=== PATIENT | male | born 1955 | race Caucasian/White ===

== ENCOUNTER → 2020-06-24 08:59 | Outpatient (POV) | payer MEDICARE, BC, SELFPAY | PROVIDERS: Visit Provider Dermatology | DX: Z00.00 Encounter for general adult medical examination without abnormal findings (principal) ==

== ENCOUNTER 2020-07-06 10:42 | Emergency (ER) | payer MEDICARE, BC, SELFPAY ==
[2020-07-06 10:50] VITALS: BP 174/86; PULSE 74; RESP 17; TEMP 37; O2SAT 97; BMI 39.9
--- NOTE | 2020-07-06 11:02 | XR_ITS ---
PROCEDURE: XR LUMBAR SPINE 2-3V CLINICAL INDICATION: PAIN COMPARISON: No exams were available for comparison FINDINGS: Mild levocurvature of the lumbar spine. Degenerative disc disease from L2-S1 most prominent at L3-L4 and L5-S1. Anterior osteophytes are present at L2-L3. No fracture or dislocation. No lytic or blastic change. Other findings:None. IMPRESSION: Degenerative changes lumbar spine. Dictated by: Ashish Abdi MD 07/06/2020 12:06 Ashish Abdi MD in [place] 07/06/2020 12:06
--- NOTE | 2020-07-06 11:18 | HMH.EDUTC ---
[facility] [place] Clinical Impression: Low back pain Qualifiers: Chronicity: unspecified Back pain laterality: right Sciatica presence: with sciatica Sciatica laterality: sciatica of right side Qualified Code(s): M54.41 - Lumbago with sciatica, right side Disposition: Home, Self-Care Condition on Discharge: Good Instructions: Low Back Pain, DI for Low Back Pain, DI for Chronic Pain -- Adult, Prednisone, Methocarbamol, DI for Muscle Spasm Additional Instructions: *Ibuprofen tierra 6 hours with meal as needed for pain/inflammation *Remember you had a Toradol shot in the clinic today, which is similar to Motrin *Not additional anti-inflammatory like motrin, aleve, advil with the above amount of ibuprofen. You can still take Tylenol every 4 hours as needed if you need something else for pain *Ice 20 minutes every 2 hours for the first 48 hours after the initial injury followed by moist heat every 20 minutes 3-4 times a day to affected area *Muscle relaxer as prescribed as needed for muscle spasms but remember, it WILL cause drowsiness You cannot take it and drive, operate machinery or care for small children. *Keep this area active, no movement leads to more stiffness, However take it easy and avoid heavy lifting pushing or pulling *Follow up with you family doctor if no improvement for further treatment Return if needed Straight to ER if any life threatening symptoms Straight to ER if any loss of control of bowel or bladder Prescriptions: methocarbamoL [Robaxin 750mg Tab] 750 mg PO BID PRN 5 Days #10 tab PRN Reason: Muscle Spasm Transmission Status: [id number] Referrals: Rudy Moses MD [Primary Care Provider] - As needed Time of Disposition: 12:18 Medical Decision Making - Matthew Inquiry Pt receiving controlled substance: No Matthew was queried for this patient: No Vital Signs: 07/06/20 10:50 07/06/20 12:29 Temperature 98.6 F 98.6 F Temperature Source Oral Oral Pulse Rate 74 Pulse Rate [Radial] 74 Respiratory Rate 17 17 Blood Pressure 174/86 H Blood Pressure [Right Arm] 174/86 H Blood Pressure Mean [Right Arm] 115 Blood Pressure Source Automatic Cuff Blood Pressure Source [Right Arm] Automatic Cuff Blood Pressure Position Sitting Blood Pressure Position [Right Arm] Sitting 02 Sat by Pulse Oximetry 97 Oxygen Delivery Method Room Air Room Air Orders (Tests/Meds): ED MEDICATIONS Discontinued Medications Generic Name Dose Route Start Last Admin Trade Name Leonardo PRN Reason Stop Dose Admin Methylprednisolone Sodium Succinate 125 mg 07/06/20 12:20 07/06/20 12:26 Methylprednisolone Sod Succ 125mg Vial IM 07/06/20 12:21 125 mg ONCE ONE Administration - Radiology Data #1 Image(s): L-Spine Image Reviewed: Yes I have reviewed radiologist's interpretation Degenerative changes lumbar spine. [facility] [place] - General Stated complaint: down in back Time Seen by Provider: 07/06/20 11:00 Mode of Arrival: Wheelchair Source of Information: Patient Limitations: No Limitations Description of Symptoms (Recalled from Triage Doc. by RN): States he is down in his back. Lower back pain. HEENT Symptoms (Recalled from RN notes): No Resp Symptoms (Recalled from RN notes): No Skin Symptoms (Recalled from RN notes): No MS Symptoms (Recalled from RN notes): Yes Functional Status (Recalled from RN notes): wnl - History of Present Illness Provider Complaint: Patient states that he is down in his lower back States that he has chronic back problems in the past States that he has been having pain in his lower back area that radiates into his buttock area and down right leg State that it hurts worse when he tries to stand up and walk States that today it was still bothering him so he came in to see if he could get something to help Denies loss of control of bowel or bladder - Related Data Previous Rx's Medication Instructions Recorded Ondansetron [Zofran 4mg ODT] 4 mg
[2020-07-06 12:29] VITALS: BP 174/86; PULSE 74; RESP 17; TEMP 37; O2SAT 97
== END 2020-07-06 12:31 | disposition home or self-care (01) ==
PROVIDERS: Emergency Provider Nurse Practitioner; PCP Internal Medicine Adolescent Medicine
DX: M54.41 Lumbago with sciatica, right side (principal)
CPT/HCPCS: G0463; 72100; 96372; 99202

== ENCOUNTER 2020-07-08 10:52 | Emergency (ER) | payer MEDICARE, BC, SELFPAY ==
[2020-07-08 10:55] VITALS: BP 146/73; PULSE 80; RESP 18; TEMP 36.8; O2SAT 97; BMI 39.1
--- NOTE | 2020-07-08 11:03 | HMH.EDGENADL ---
ED Disposition Clinical Impression: Low back pain with sciatica Qualifiers: Chronicity: acute Back pain laterality: bilateral Sciatica laterality: bilateral sciatica Qualified Code(s): M54.42 - Lumbago with sciatica, left side Disposition: Home, Self-Care Condition on Discharge: Fair Instructions: DI for Low Back Pain Additional Instructions: Prednisone as prescribed, begin tomorrow. Tylenol or ibuprofen for pain. Follow-up with primary care provider, call for appointment. Additional instructions for BACK PAIN: See your physician as soon as possible for further evaluation. Return immediately if back pain becomes intolerable, or if fever, numbness or weakness of your legs, loss of control of your bowels or bladder. Prescriptions: predniSONE [Prednisone 10mg Tab Dose-Pack] 10 mg PO DAILY #42 pack Transmission Status: Pending to [id number] Referrals: Rudy Moses MD [Primary Care Provider] - - Critical Care Critical Care Time: No Attestation: On , the high probability of a clinically significant, sudden or life threatening deterioration of the following system(s) required my full and direct attention, intervention and personal management. The time I documented below is in addition to time spent performing reported procedures but includes the following listed in this critical care notation. Medical Decision Making - Matthew Inquiry Pt receiving controlled substance: No Vital Signs: 07/08/20 10:55 Temperature 98.3 F Temperature Source Oral Pulse Rate [Right Radial] 80 Respiratory Rate 18 Blood Pressure [Right Arm] 146/73 H Blood Pressure Mean [Right Arm] 97 Blood Pressure Source [Right Arm] Automatic Cuff Blood Pressure Position [Right Arm] Sitting 02 Sat by Pulse Oximetry 97 Oxygen Delivery Method Room Air Orders (Tests/Meds): ED MEDICATIONS Discontinued Medications Generic Name Dose Route Start Last Admin Trade Name Freq PRN Reason Stop Dose Admin Dexamethasone Sodium Phosphate 10 mg 07/08/20 11:19 07/08/20 11:25 Dexamethasone 4mg/Ml 1ml Vial IM 07/08/20 11:20 10 mg ONCE ONE Administration Medical Decision Narrative: I suspect the patient has spinal stenosis, advised to follow-up with primary care provider, may need MRI. Patient declines any opiate pain relievers. General Adult HPI - General Stated complaint: back pain, no accident Time Seen by Provider: 07/08/20 11:03 - History of Present Illness HPI narrative: Patient has a long history of lower back pain. 20 years ago he had an injury to his back. For years he would have problems with a daily pain with radiation, typically down one leg. He says after that he did fairly well for a number of years but over the past week has had increased low back pain again at the level of his belt line radiating down both legs to his feet. Pain is exacerbated by standing position and walking, reduced by rest and sitting. Denies numbness or weakness. Denies loss of bowel or bladder control. No groin numbness. He was seen in the urgent treatment center 2 days ago and was given an injection of Solu-Medrol. He says he was better for half a day but then symptoms returned. He was not started on steroids at home. He was given a prescription for muscle relaxer which he does not feel does anything. He does not currently see anybody about his back pain. - Related Data Previous Rx's Medication Instructions Recorded Ondansetron [Zofran 4mg ODT] 4 mg PO Q6 PRN #8 tab.rapdis 11/25/19 methocarbamoL [Robaxin 750mg Tab] 750 mg PO BID PRN 5 Days #10 tab 07/06/20 predniSONE [Prednisone 10mg Tab 10 mg PO DAILY #42 pack 07/08/20 Dose-Pack] Allergies Allergy/AdvReac Type Severity Reaction Status Date / Time No Known Allergies Allergy Verified 11/25/19 01:06 [facility] History - Hepatitis A Screen Attestation statement:: This patient has been screened for Hepatitis A risk factors. I have reviewed the sabine
[2020-07-08 11:41] VITALS: BP 134/71; PULSE 76; O2SAT 97
[2020-07-08 11:53] VITALS: BP 134/71; PULSE 78; RESP 16; TEMP 36.6; O2SAT 98
== END 2020-07-08 11:54 | disposition home or self-care (01) ==
PROVIDERS: Emergency Provider Emergency Medicine; PCP Internal Medicine Adolescent Medicine
DX: M54.42 Lumbago with sciatica, left side (principal)
CPT/HCPCS: 96372; 99282

== ENCOUNTER → 2020-08-01 07:48 | Outpatient (CLI) | payer MEDICARE, BC, SELFPAY ==
--- NOTE | 2020-08-01 07:55 | MR_ITS ---
PROCEDURE: MR LUMBAR SPINE WO CON CLINICAL INDICATION: BACK PAIN i2rtcid ago. pt has been to physical therapy. lbp worse on rt side. bilateral leg pain, numbness, and tingling. COMPARISON: CR XR LUMBAR SPINE 2-3V from 07/06/2020 TECHNIQUE: Standard multiplanar multiecho sequences are performed without contrast. 3-D MIP and myelographic images are also rendered and reviewed FINDINGS: There is normal alignment. The spinal cord ends at the T12-L1 level. L1-L2: Unremarkable. L2-L3: Degenerative disc disease with bulging disc with facet and ligamentum hypertrophy. There is moderate to severe bilateral lateral recess narrowing right greater than left and borderline spinal stenosis there is impingement upon the L3 nerve roots in the lateral recess on both sides right greater than left. L3-L4: Degenerative disc disease with bulging disc and small central disc protrusion. There is prominent facet and ligamentum hypertrophy right worse than left with severe right lateral recess narrowing and moderate left lateral foraminal narrowing. Canal stenosis at this level. There is impingement upon the right L4 nerve root. L4-5: Degenerative disc disease with bulging disc and a small to medium left paracentral disc protrusion/herniation. There is severe facet and ligamentum hypertrophy with severe bilateral lateral recess narrowing with impingement upon the L5 nerve roots. There is severe canal stenosis which is worse centrally and on the left and severe left-sided foraminal narrowing and mild right foraminal narrowing. L5-S1: Degenerative disc disease with bulging disc with facet and ligamentum hypertrophy with mild bilateral lateral recess narrowing, severe left foraminal narrowing, and mild right foraminal narrowing. IMPRESSION: Abnormal MRI of the lumbar spine with multilevel lumbar spondylosis with degenerative disc disease bulging disc with facet and ligamentum hypertrophy with lateral recess and foraminal narrowing and canal stenosis. Small central disc protrusion at L3-L4 and small to medium-sized left paracentral disc protrusion/herniation at L4-5. Multi level nerve root impingement. Please see above for detailed description at each level. Dictated by: Ashish Abdi MD 08/02/2020 09:29 Ashish Abdi MD in [place] 08/02/2020 09:29
== END ==
PROVIDERS: PCP Internal Medicine Adolescent Medicine; Visit Provider Internal Medicine Adolescent Medicine
DX: M54.41 Lumbago with sciatica, right side (principal)
CPT/HCPCS: 72148; 76376

== ENCOUNTER 2020-08-05 09:00 | Outpatient (RCR) | payer MEDICARE, BC, SELFPAY ==
--- NOTE | 2020-07-16 09:34 | HMH.PTOPEV ---
PT Outpatient Evaluation Rehab PT Outpatient Evaluation Start: 07/16/20 08:36 Freq: Status: Active Protocol: Document 07/16/20 08:37 PDESEROUX (Rec: 07/16/20 09:33 PDESEROUX [id number]) Electronically Signed By Behzad Segura, PT 07/16/20 08:37 Outpatient Therapy Subjective History Subjective History Pt. is a 64 year old male who presents to Outpatient PT clinic w/ complaints of acute on chronic and constant LB and BLE P! of insidious onset 2 weeks ago. Pt. reports first onset of LBP ! was 13-14 years ago, but states symptoms have worsened 2 wks. ago. Pt. reports acute symptom onset may have been from helping his brother-in- law ambulate w/ his FWW. Pt. reports refusing having invasive procedures 13-14 years ago w/ initial onset, but stated having some symptom relief w/ Chiropractor services. Pt. reports current symptom relief w/ sitting and prescribed medications that include a steroid, muscle relaxer, and an anti- inflammatory. Pt. reports standing and walking worsen the symptoms. Pt. denies bowel /bladder incontinencies. Current medications include medicine listed above and Vitamin D3, Loratadine, Amlodipine, Carvedilol, Losartan, Rosuvastatin, Cetirizine, and Montelukast. PMH includes chronic LBP!, Prostate cancer 2016(pt. reports currently inactive), Cholecystectomy, Adenoidectomy , Tonsillectomy, Hypertension, and Histoplasmosis. Chief Complaint Pain,Stiff,Paresthesia Symptom Type Ache,Sharp,Dull,Burning, Shooting Symptoms Relieved By Rest/Positioning,Ice, Prescription Meds Symptoms Aggravated By Supine,Standing,Twisting, Walking Prior
== END 2020-08-21 14:00 | disposition home or self-care (01) ==
LOC: PT.CARL 09:00
PROVIDERS: PCP Internal Medicine Adolescent Medicine; Visit Provider Internal Medicine Adolescent Medicine
DX: M54.40 Lumbago with sciatica, unspecified side (principal)
CPT/HCPCS: 97010; 97014; 97110; 97140; 97163; G0283

== ENCOUNTER → 2020-09-16 07:23 | Outpatient (CLI) | payer MEDICARE, BC, SELFPAY ==
[2020-09-16 13:55] LABS: Alanine Aminotransferase 19 U/L (12-78); Albumin Level 3.7 g/dl (3.5-5.0); Albumin/Globulin Ratio 1.3 (1.1-1.8); Alkaline Phosphatase 102 U/L (38-126); Anion Gap 9.7 mEq/L (5-15); Aspartate Amino Transferase 24 U/L (17-59); Bilirubin,Total 0.5 mg/dl (0.2-1.3); Blood Urea Nitrogen 22 mg/dl (9-20); Calcium 9.3 mg/dl (8.4-10.2); Carbon Dioxide 28 mmol/L (22.0-30.0); Chloride 103 mmol/L (98-107); Chol/HDL Ratio 3.5 (1-3.5); Cholesterol 126 mg/dl (140-200); Estimated Glomerular Filt Rate 97 ml/min (>60); GFR (African American) 117 ML/MIN (>60); Globulin 2.8 g/dL (1.3-3.2); Glucose 98 mg/dl (74-100); HDL Cholesterol 36 mg/dl (40-60); Potassium 4.7 mmoL/L (3.5-5.1); Sodium 136 mmol/L (136-145); Total Protein,Serum 6.5 g/dl (6.3-8.2); Triglycerides 121 mg/dl (30-150); VLDL Cholesterol 24 mg/dL (0-40)
[2020-09-16 14:06] LABS: Direct LDL Cholesterol 79.28 mg/dL (100-129)
[2020-09-16 14:11] LABS: 25-OH Vitamin D, Total 47.1 ng/mL (30-100)
== END ==
PROVIDERS: Visit Provider Nurse Practitioner Family
DX: Z00.00 Encounter for general adult medical examination without abnormal findings (principal); I10 Essential (primary) hypertension; E55.9 Vitamin D deficiency, unspecified
CPT/HCPCS: 36415; 80053; 80061; 82306

== ENCOUNTER 2021-11-16 09:13 | Emergency (ER) | payer MEDICARE, BC, SELFPAY ==
[2021-11-16 09:14] VITALS: BP 164/95; PULSE 72; RESP 18; TEMP 36.8; O2SAT 98; BMI 38.7
[2021-11-16 09:30] VITALS: BP 175/106; PULSE 72; O2SAT 95
--- NOTE | 2021-11-16 09:34 | HMH.EDGENADL ---
ED Disposition Clinical Impression: HTN (hypertension) Disposition: Home, Self-Care Condition on Discharge: Good Additional Instructions: Please follow up with your primary care physician in 2-3 days for further management. Please continue to take blood pressure medications as prescribed and keep log of your blood pressure. Please continue to drink plenty of water. Return if numbness, weakness, speech changes, worsening headache or any other concerning symptoms. Referrals: Rudy Moses MD [Primary Care Provider] - Time of Disposition: 09:55 - Critical Care Critical Care Time: No Attestation: On 11/16/21, the high probability of a clinically significant, sudden or life threatening deterioration of the following system(s) required my full and direct attention, intervention and personal management. The time I documented below is in addition to time spent performing reported procedures but includes the following listed in this critical care notation. Medical Decision Making - Medical Records Medical records reviewed: Yes: I reviewed the patient's medical records. - Matthew Inquiry Pt receiving controlled substance: No Vital Signs: 11/16/21 09:14 11/16/21 09:30 11/16/21 09:52 Temperature 98.3 F 98.3 F Temperature Source Oral Pulse Rate 72 74 Pulse Rate [Left Radial] 72 Respiratory Rate 18 20 Blood Pressure 175/106 H 159/89 H Blood Pressure [Right Arm] 164/95 H Blood Pressure Mean 129 Blood Pressure Mean [Right Arm] 118 Blood Pressure Source Automatic Cuff Blood Pressure Source [Right Arm] Automatic Cuff Blood Pressure Position Sitting Blood Pressure Position [Right Arm] Sitting 02 Sat by Pulse Oximetry 98 95 Oxygen Delivery Method Room Air Room Air - Lab Data Lab results reviewed: Yes: I reviewed the patient's lab results. Orders (Tests/Meds): ED MEDICATIONS Discontinued Medications Generic Name Dose Route Start Last Admin Trade Name Freq PRN Reason Stop Dose Admin Acetaminophen 1,000 mg 11/16/21 09:34 11/16/21 09:47 Acetaminophen 500mg Tab PO 11/16/21 09:35 1,000 mg ONCE ONE Administration Ibuprofen 600 mg 11/16/21 09:34 11/16/21 09:47 Ibuprofen 600 Mg Tablet PO 11/16/21 09:35 600 mg ONCE ONE Administration Medical Decision Narrative: Mr. Ortiz is a 66 yo male w/ PMH for HTN who presents to the ED for concern for uncontrolled blood pressures. Patient is afebrile and hemodynamically stable on arrival. BP on arrival 164/95. Patient denies chest pain, visual disturbances, focal neurological deficits or any other signs of end organ failure. Patient has mild headache but also reports he has not been drinking water and was recently sick a week ago with viral illness. Patient BP at this time, no concern for hypertensive emergency, BP reads have been consistently high over the last month with no changes. Patient is given tylenol and iubprofen for pain control and instructed to drink plenty of water. Symptoms resolved at discharged. Patient is instructed to drink plenty of water and to return for worsening symptoms such as numbness, weakness, visual changes, severe headache, or any other concerns. Patient will fu w/ PCP in 2-3 days, patient instructed to continue BP log to assist PCP with medication management. General Adult HPI - General Chief complaint: Headache Stated complaint: high blood presssure Time Seen by Provider: 11/16/21 09:20 Mode of Arrival: Ambulatory Source of Information: Patient Limitations: No Limitations Description of Symptoms (Recalled from ER Triage Doc. by RN): c/o MUÑOZ for 3 days with high bp 160s/80s for one month. States that last time he had a MUÑOZ and it was his bp up. - History of Present Illness HPI narrative: Mr. Ortiz is a 66 yo male w/ PMH for HTN who presents to the ED for HTN and headache. Patient reports that he has had increase in his BP over the last month. He kept a diary log which shows AVG BP of 140-150/89-
--- NOTE | 2021-11-16 09:45 | PC.NURSE ---
updated pt on pt care
[2021-11-16 09:52] VITALS: BP 159/89; PULSE 74; RESP 20; TEMP 36.8; O2SAT 98
== END 2021-11-16 09:55 | disposition home or self-care (01) ==
PROVIDERS: Emergency Provider Student in an Organized Health Care Education/Training Program; PCP Internal Medicine Adolescent Medicine
DX: R51.9 Headache, unspecified (principal); I10 Essential (primary) hypertension
CPT/HCPCS: 99283

== ENCOUNTER 2022-12-29 08:52 | Day surgery (SDC) | payer MEDICARE, BC, SELFPAY ==
[2022-12-14 13:44] VITALS: BMI 38.8
[2022-12-29] VITALS (8 sets, daily range): BP systolic 82–153; BP diastolic 44–87; PULSE 66–88; RESP 20; TEMP 36.1–36.2; O2SAT 94–98
--- NOTE | 2022-12-29 11:44 | EXP.ANES.CKL ---
[facility] Disclaimer: The information contained in this section may have been updated after the patient was seen, as this information can be updated by other users. Medical History History of prostate cancer HLD (hyperlipidemia) HTN (hypertension) Surgical History (Updated 12/14/22 @ 13:39 by Alisa Irizarry RN) H/O adenoidectomy History of cholecystectomy Hx of prostatectomy Hx of tonsillectomy Previous back surgery Family History Other Asthma Cancer Coronary artery disease Diabetes Heart attack Hyperlipidemia Hypertension Kidney disease Stroke Social History (Updated 12/14/22 @ 13:39 by Alisa Irizarry RN) Smoking Status: Former smoker smoking status stop date: 09/19/1972 how long ago did patient quit smokin yrs alcohol intake: never substance use type: denies use current occupational status: retired Travel in the last 8 weeks: None household members: none housing: house lives independently: Yes marital status: education level: college service: No longterm: No special oxana needs: No agree to transfusion: No do you feel safe at home: Yes victim of physical abuse: No victim of emotional abuse: No victim of sexual abuse: No would you like helpful sources: No [facility] Anesthesia Checklist Patient Identification Patient Identification: Arm Band Structural Data Admitted From: Home Planned Operative Procedure/s: colonoscopy Consent for Planned Operative Procedure(s) Verified: Yes Verified Documents: Surgical Consent and History and Physical NPO Status Verified Time NPO: 00:00 Additional verifications Patient : No Airway Assessment C-Spine Mobility Assessed: Yes TMJ Mobility Assessed: Yes Dentition: Good Dentition Neurological Assessment Level of Consciousness: Awake and Alert Anesthesia Plan Anesthesia Risk discussed: Yes Anesthesia Plan: Verified ASA Class: II Anesthesia Type: MAC
--- NOTE | 2022-12-29 12:06 | HMH.SCOPE ---
Procedure: Date: 12/29/22 Patient Date of :: 1955 Procedure Performed:: Colonoscopy Indications:: History of polyps Performing Provider:: Jose Alicia MD Referring Provider:: Rudy Moses MD Sedation:: See RN records Procedure:: After placing the patient in the left lateral decubitus position, the colonoscopy was gently inserted into the rectum and under direct visualization advanced to the cecum which was identified by transillumination in the right lower quadrant, identification of the ileocecal valve, appendiceal orifice, and cecal strap. Color, texture, mucosa, and anatomy of the colon were carefully examined with the scope. Findings:: Anal canal: normal Rectum:internal hemorrhoidsl Sigmoid colon: diverticulosis Descending colon: Sessile polyp less than 5 mm in size. Removed with cold forceps Splenic flexure: normal Transverse colon: normal without polyps or inflammatory changes Hepatic flexure: normal Ascending colon: normal without polyps or inflammatory changes Cecum: normal Terminal ileum: not visualized Recommendations:: Await pathology results Repeat colonoscopy in 5 years Complications:: None Estimated blood obtained (mL): 0
== END 2022-12-29 12:55 | disposition home or self-care (01) ==
PROVIDERS: PCP Internal Medicine Adolescent Medicine; Visit Provider Internal Medicine
PROC: 0DJD8ZZ Inspection of Lower Intestinal Tract, Via Natural or Artificial Opening Endoscopic (ICD-10-PCS; CPT 45378; principal; 2022-12-29 11:00)
DX: Z12.11 Encounter for screening for malignant neoplasm of colon (principal); K63.5 Polyp of colon; K64.8 Other hemorrhoids; K57.30 Diverticulosis of large intestine without perforation or abscess without bleeding; Z86.010 Personal history of colon polyps; Z79.899 Other long term (current) drug therapy
CPT/HCPCS: 45380; 88305

== ENCOUNTER 2023-04-13 07:07 | Emergency (ER) | payer MEDICARE, BC, SELFPAY ==
[2023-04-13] VITALS (7 sets, daily range): BP systolic 124–160; BP diastolic 67–77; PULSE 61–81; RESP 16–17; TEMP 36.7; O2SAT 94–99; BMI 39.1
--- NOTE | 2023-04-13 07:22 | XR_ITS ---
FINAL REPORT CLINICAL HISTORY: SOA, cough, LLL wheezing/ronchi FINDINGS: TWO VIEW CHEST The heart size is normal. The mediastinum is normal. The lungs are clear. There is no pneumothorax. IMPRESSION: No acute cardiopulmonary process. Reviewed, Interpreted and Dictated by Rayne Yen MD Transcribed by Jackie Ariza Authenticated and [facility]
--- NOTE | 2023-04-13 07:29 | HMH.EDGENADL ---
Discharge Plan Disposition Patient Disposition: Home, Self-Care Condition: Good Prescriptions Prescriptions: New albuterol sulfate 90 mcg/actuation HFA aerosol inhaler 1 inh inhalation Q6H PRN (Reason: shortness of breath or wheezing) Qty: 8.5 0RF prednisone 50 mg tablet 50 mg PO DAILY 5 Days Qty: 5 0RF doxycycline hyclate 100 mg tablet 100 mg PO BID 10 Days Qty: 20 0RF [id number] [Bromfed DM] 2-30-10 mg/5 mL syrup 5 ml PO Q6H PRN (Reason: allergy symptoms) Qty: 118 0RF No Action omeprazole 20 mg tablet,delayed release (DR/EC) 20 mg PO DAILY cholecalciferol (vitamin D3) 50 mcg (2,000 unit) tablet 50 mcg PO DAILY loratadine [Allergy Relief (loratadine)] 10 mg tablet 10 mg PO DAILY amlodipine 5 mg tablet 5 mg PO DAILY carvedilol 12.5 mg tablet 12.5 mg PO BID hydralazine 25 mg tablet 25 mg PO BID losartan 100 mg tablet 100 mg PO DAILY rosuvastatin 10 mg tablet 10 mg PO DAILY montelukast 10 mg tablet 10 mg PO DAILY Referrals Follow up/Referrals: Rudy Moses MD [Primary Care Provider] - See instructions Activity Restrictions/Add. Instructions Additional Instructions/Restrictions: You were evaluated in the emergency department today. Please orange picker your prescriptions at the pharmacy and take the full course of antibiotics as prescribed. Follow-up with your primary care provider over the next 3 days for reassessment. Return to the emergency department for any new or worsening symptoms. Clinical Impressions Clinical Impression: CAP (community acquired pneumonia) Qualifiers: Laterality: left Lung location: lower lobe of lung Qualified Code(s): J18.9 - Pneumonia, unspecified organism Instructions Patient Instructions: DI for Pneumonia -- Adult Discharge ED Provider: Gladis Underwood General Adult HPI General Chief complaint: Upper Respiratory Infection Stated complaint: cough, chest congestion Time Seen by Provider: 04/13/23 07:12 Mode of Arrival: Ambulatory Source of Information: Patient Limitations: No Limitations Description of Symptoms (Recalled from ER Triage Doc. by RN): 67 yo M presents to ED with c/o cough, chest congestion. pt reports he had similar symptoms last tuesday. associated runny nose, sore throat. pt reports 2 days ago he feels his symptoms returned. History of Present Illness HPI narrative: This patient is a 67-year-old male who has a history of hypertension presented to the emergency department for evaluation with concern for cough and wheezing. Patient reports that his symptoms initially started 1 week ago but it acutely worsened over the last 2 days. He states that he initially took some cold medications for 3 days and started feeling better, however for the last 2 days he has had increasing cough, wheezing, and is having difficulty sleeping because his symptoms are worse at night. He denies any history of cardiopulmonary issues such as COPD, but he does note a remote history of histoplasmosis as a teenager. No other concerns noted at this time. Related Data Home Medications Medication Instructions Recorded Confirmed amlodipine 5 mg tablet 5 mg PO DAILY htn 11/16/22 04/13/23 carvedilol 12.5 mg tablet 12.5 mg PO BID htn 11/16/22 04/13/23 cholecalciferol (vitamin D3) 50 50 mcg PO DAILY Supplement 11/16/22 04/13/23 mcg (2,000 unit) tablet hydralazine 25 mg tablet 25 mg PO BID htn 11/16/22 04/13/23 loratadine 10 mg tablet (Allergy 10 mg PO DAILY allergies 11/16/22 04/13/23 Relief (loratadine)) losartan 100 mg tablet 100 mg PO DAILY htn 11/16/22 04/13/23 montelukast 10 mg tablet 10 mg PO DAILY allergies 11/16/22 04/13/23 omeprazole 20 mg tablet,delayed 20 mg PO DAILY Reflux/Acid reflux 11/16/22 04/13/23 release rosuvastatin 10 mg tablet 10 mg PO DAILY Cholesterol 11/16/22 04/13/23 Previous Rx's Medication Instructions Recorded albuterol sulfate 90 mcg/actuation 1 inh inhal
[2023-04-13 07:37] LABS: Coronavirus 19, PCR Not Detected (NotDetected); Influenza A, PCR Not Detected (NotDetected); Influenza B, PCR Not Detected (NotDetected)
--- NOTE | 2023-04-13 08:36 | PC.NURSE ---
contacted rad to check on status of chest xray result, states is in a locked status, updated ER MD Underwood
== END 2023-04-13 10:08 | disposition home or self-care (01) ==
PROVIDERS: Emergency Provider Emergency Medicine; PCP Internal Medicine Adolescent Medicine
DX: J18.9 Pneumonia, unspecified organism (principal); E78.5 Hyperlipidemia, unspecified; I10 Essential (primary) hypertension; Z87.891 Personal history of nicotine dependence
CPT/HCPCS: 71046; 87636; 99284

== ENCOUNTER → 2023-07-11 09:41 | Outpatient (CLI) | payer MEDICARE, BC, SELFPAY ==
[2023-07-11 10:21] LABS: Basophils # 0.1 K/mm3 (0-0.2); Basophils % 0.6 % (0.1-2.0); Eosinophils # 0.2 K/mm3 (0.0-0.4); Eosinophils % 2.6 % (0.1-12.0); Hematocrit 42.7 % (42.0-52.0); Hemoglobin 14.5 g/dL (14.1-18.0); Lymphocytes # 1.9 K/mm3 (0.7-4.5); Lymphocytes % 21.9 % (10-50); Mean Corpuscular Hemoglobin 30.7 pg (27.0-31.2); Mean Corpuscular Volume 90.1 fl (80-94); Mean Platelet Volume 8.1 fl (7.4-10.4); Monocytes # 0.5 K/mm3 (0.1-1.0); Monocytes % 5.5 % (1.7-9.3); Neutrophils % 69.4 % (37.0-80.0); Platelet Count 228 K/mm3 (142-424); Red Blood Count 4.74 M/mm3 (4.60-6.20); Red Cell Distribution Width 14.1 % (11.5-17.5); White Blood Count 8.6 K/mm3 (4.8-10.8)
[2023-07-11 12:02] LABS: Alanine Aminotransferase 30 U/L (12-78); Albumin Level 4.2 g/dl (3.5-5.0); Albumin/Globulin Ratio 1.6 (1.1-1.8); Alkaline Phosphatase 71 U/L (38-126); Anion Gap 11.8 mEq/L (5-15); Aspartate Amino Transferase 38 U/L (17-59); Bilirubin,Total 0.5 mg/dl (0.2-1.3); Blood Urea Nitrogen 21 mg/dl (9-20); Calcium 9.3 mg/dl (8.4-10.2); Carbon Dioxide 27 mmol/L (22.0-30.0); Chloride 104 mmol/L (98-107); Chol/HDL Ratio 3.8 (1-3.5); Cholesterol 123 mg/dl (140-200); Estimated Glomerular Filt Rate 112 ml/min (>60); GFR (African American) 135 ML/MIN (>60); Globulin 2.7 g/dL (1.3-3.2); Glucose 99 mg/dl (74-100); HDL Cholesterol 32 mg/dl (40-60); Potassium 4.8 mmoL/L (3.5-5.1); Sodium 138 mmol/L (136-145); Total Protein,Serum 6.9 g/dl (6.3-8.2); Triglycerides 115 mg/dl (30-150); VLDL Cholesterol 23 mg/dL (0-40)
[2023-07-11 12:18] LABS: 25-OH Vitamin D, Total 50.9 ng/mL (30-100)
[2023-07-11 12:30] LABS: Prostate Specific Ag Screen < 0.1 ng/ml (0.0-4.0)
== END ==
LOC: LAB 09:42
PROVIDERS: PCP Internal Medicine Adolescent Medicine; Visit Provider Internal Medicine Adolescent Medicine
DX: E55.9 Vitamin D deficiency, unspecified (principal); E78.5 Hyperlipidemia, unspecified; I10 Essential (primary) hypertension; Z85.46 Personal history of malignant neoplasm of prostate; Z68.41 Body mass index [BMI] 40.0-44.9, adult; Z87.891 Personal history of nicotine dependence; Z12.5 Encounter for screening for malignant neoplasm of prostate
CPT/HCPCS: 36415; 80053; 80061; 82306; 85025; G0103

== ENCOUNTER → 2023-07-12 07:44 | Outpatient (CLI) | payer MEDICARE, BC, SELFPAY ==
--- NOTE | 2023-07-12 07:51 | US_ITS ---
FINAL REPORT CLINICAL HISTORY: H/O NICOTINE DEPENDENCE COMPARISON: None FINDINGS: Sonographic images were obtained of the abdominal aorta. The abdominal aorta measures up to 1.6 cm in greatest dimensions. The common iliac arteries are within normal limits. IMPRESSION: No evidence of aortic aneurysm. Reviewed, Interpreted and Dictated by Joseph Foote III, MD Transcribed by Shauna Disla Authenticated and [facility]
== END ==
PROVIDERS: PCP Internal Medicine Adolescent Medicine; Visit Provider Internal Medicine Adolescent Medicine
DX: Z87.891 Personal history of nicotine dependence (principal)
CPT/HCPCS: 76705

== ENCOUNTER 2023-10-22 14:19 | Emergency (ER) | payer MEDICARE, BC, SELFPAY ==
[2023-10-22 14:40] VITALS: BP 149/88; PULSE 88; RESP 21; TEMP 36.9; O2SAT 97; BMI 39.1
--- NOTE | 2023-10-22 14:46 | ED_ITS ---
Discharge Plan Disposition Patient Disposition: Home, Self-Care Condition: Good Prescriptions Prescriptions: No Action omeprazole 20 mg tablet,delayed release (DR/EC) 20 mg PO DAILY cholecalciferol (vitamin D3) 50 mcg (2,000 unit) tablet 50 mcg PO DAILY loratadine [Allergy Relief (loratadine)] 10 mg tablet 10 mg PO DAILY amlodipine 5 mg tablet 5 mg PO DAILY carvedilol 12.5 mg tablet 12.5 mg PO BID hydralazine 25 mg tablet 25 mg PO BID losartan 100 mg tablet 100 mg PO DAILY rosuvastatin 10 mg tablet 10 mg PO DAILY montelukast 10 mg tablet 10 mg PO DAILY latanoprost 0.005 % drops 1 drp Eye-Both nitroglycerin 0.4 mg tablet, sublingual 0.4 mg sublingual azelastine 137 mcg (0.1 %) aerosol,spray 2 spray intranasal BID Qty: 30 3RF Rx Instructions: administer into each nostril albuterol sulfate 90 mcg/actuation HFA aerosol inhaler 1 inh inhalation Q6H PRN (Reason: shortness of breath or wheezing) Qty: 8.5 0RF Referrals Follow up/Referrals: Rudy Moses MD [Primary Care Provider] - See instructions Activity Restrictions/Add. Instructions Additional Instructions/Restrictions: No sign of a bacterial infection. Likely viral. Viruses can take 7-14 days to run their course. Nasal saline and bulb syringe or nose Alexandra to remove nasal drainage to help with nasal congestion. Hard to eat, drink, sleep with nasal congestion so important to keep this cleaned out. Monitor temp. Tylenol or Motrin as needed for pain or fever Encourage fluids, water, Gatorade, Powerade, Pedialyte if /toddler/child Warm salt water gargles Warm fluids Sore throat lozenges Sleep elevated Humidifier/vaporizer Follow-up immediately for new or worsening symptoms or no noticeable improvement over the next 48-72 hours. Clinical Impressions Clinical Impression: COVID-19 Instructions Patient Instructions: How to Care for Someone with COVID-19, DI for COVID-19 (Suspected or Confirmed ) Discharge ED Provider: [place] ([facility] [facility] [place] General Stated complaint: covid test Mode of Arrival: Ambulatory Source of Information: Patient Limitations: No Limitations Time Seen by Provider: 10/22/23 14:46 HEENT Symptoms (Recalled from RN notes): Yes Resp Symptoms (Recalled from RN notes): Yes History of Present Illness Provider Complaint: 68 yr old male presents for runny nose, watery eyes, body aches and chills- has been exposed to covid Related Data Home Medications Medication Instructions Recorded Confirmed amlodipine 5 mg tablet 5 mg PO DAILY htn 11/16/22 10/19/23 carvedilol 12.5 mg tablet 12.5 mg PO BID htn 11/16/22 10/19/23 cholecalciferol (vitamin D3) 50 50 mcg PO DAILY Supplement 11/16/22 10/19/23 mcg (2,000 unit) tablet hydralazine 25 mg tablet 25 mg PO BID htn 11/16/22 10/19/23 loratadine 10 mg tablet (Allergy 10 mg PO DAILY allergies 11/16/22 10/19/23 Relief (loratadine)) losartan 100 mg tablet 100 mg PO DAILY htn 11/16/22 10/19/23 montelukast 10 mg tablet 10 mg PO DAILY allergies 11/16/22 10/19/23 omeprazole 20 mg tablet,delayed 20 mg PO DAILY Reflux/Acid reflux 11/16/22 10/19/23 release rosuvastatin 10 mg tablet 10 mg PO DAILY Cholesterol 11/16/22 10/19/23 latanoprost 0.005 % eye drops 1 drp Eye-Both 08/01/23 10/19/23 nitroglycerin 0.4 mg sublingual 0.4 mg sublingual 08/01/23 10/19/23 tablet Previous Rx's Medication Instructions Recorded albuterol sulfate 90 mcg/actuation 1 inh inhalation Q6H PRN shortness 04/13/23 aerosol inhaler of breath or wheezing #8.5 grams azelastine 137 mcg (0.1 %) nasal 2 spray intranasal BID Allergic 08/01/23 spray aerosol rhinitis #30 mL Allergies Allergy/AdvReac Type Severity Reaction Status Date / Time No Known Allergies Allergy Verified 10/19/23 08:27 [facility] Disclaimer: The information contained in this section may have been updated after the patient was seen, as this information can be updated by other users. Medical History , EVENT MARKETING REPRESENTATIVE) Allergic rhinitis History of prostate cancer HLD (hyperlipidemia) HTN (hypertension) Impacted cerumen, right ear Otalgia, right ear Right chronic serous otitis media Surgical History , EVENT MARKETING REPRESENTATIVE) H/O adenoidectomy History of cholecystectomy Hx of prostatectomy Hx of tonsillectomy Previous back surgery Family History , EVENT MARKETING REPRESENTATIVE) Diabetes Coronary artery disease Hyperlipidemia Kidney disease Heart attack Cancer Hypertension Stroke Asthma Social History , EVENT MARKETING REPRESENTATIVE) Smoking Status: Former smoker smoking status stop date: 09/19/1972 how long ago did patient quit smokin yrs alcohol intake: never substance use type: denies use current occupational status: retired Travel in the last 8 weeks: None household members: none housing: house lives independently: Yes marital status: education level: college service: No longterm: No special oxana needs: No agree to transfusion: No do you feel safe at home: Yes victim of physical abuse: No victim of emotional abuse: No victim of sexual abuse: No would you like helpful sources: No ROS Obtained: Yes All systems reviewed & no additional complaints except as documented Constitutional Constitutional: Reports system reviewed and no additional complaints, except as documented, Reports as per HPI, Reports body ache and Reports chills Eyes Eyes: Reports system reviewed and no additional complaints, except as documented and Reports itchy eyes ENT Ears, Nose, Mouth, and Throat: Reports system reviewed and no additional complaints, except as documented Cardiovascular Cardiovascular: Reports system reviewed and no additional complaints, except as documented Respiratory Respiratory: Reports system reviewed and no additional complaints, except as documented Gastrointestinal Gastrointestingal: Reports system reviewed and no additional complaints, except as documented Musculoskeletal Musculoskeletal: Reports system reviewed and no additional complaints, except as documented Integumentary/Breasts Skin/Breast: Reports system reviewed and no additional complaints, except as documented Neurologic Neurologic: Reports system reviewed and no additional complaints, except as documented Hematologic/Lymphatic Henatologic/Lymphatic: Reports system reviewed and no additional complaints, except as documented Allergic/Immunologic Allergic/Immunologic: Reports system reviewed and no additional complaints, except as documented, Reports as per HPI, Reports itchy eyes and Reports seasonal rhinorrhea Physical Exam General General appearance: alert and in no apparent distress Head Head exam: atraumatic Eye Eye exam: Present normal appearance and PERRL ENT ENT exam: Present normal exam, normal oropharynx, mucous membranes moist and TM's normal bilaterally Respiratory Respiratory exam: Present normal lung sounds bilaterally Cardiovascular Cardiovascular exam: Present regular rate and normal rhythm Neurological Exam Neurological exam: Present alert and oriented X3 Medical Decision Making Medical Records Medical records reviewed: Yes I reviewed the patient's medical records. Matthew Inquiry Pt receiving controlled substance: No Matthew was queried for this patient: No Lab Data Lab results reviewed: Yes I reviewed the patient's lab results. Orders (Tests/Meds): ORDERS Category Date Time Status Rapid PCR Covid and Flu A/B Stat Lab 10/22/23 14:30 Ordered
[2023-10-22 15:00] LABS: Influenza A, PCR Not Detected (NotDetected); Influenza B, PCR Not Detected (NotDetected)
[2023-10-22 15:55] LABS: Coronavirus 19, PCR Detected (NotDetected)
[2023-10-22 15:56] VITALS: BP 149/88; PULSE 88; RESP 21; TEMP 36.9; O2SAT 97
== END 2023-10-22 16:01 | disposition home or self-care (01) ==
PROVIDERS: Emergency Provider Nurse Practitioner Family; PCP Internal Medicine Adolescent Medicine
DX: U07.1 COVID-19 (principal); R09.81 Nasal congestion; M79.18 Myalgia, other site; E78.5 Hyperlipidemia, unspecified; I10 Essential (primary) hypertension
CPT/HCPCS: 87636; 99203; 99212; G0463

== ENCOUNTER 2024-02-21 06:53 | Outpatient (CLI) | payer MEDICARE, BC, SELFPAY ==
--- NOTE | 2024-02-21 07:33 | MR_ITS ---
FINAL REPORT CLINICAL HISTORY: CERVICAL RADICULOPATHY numbness and tingling bilateral hands nki COMPARISON: None FINDINGS: Multiplanar MR imaging of the cervical spine was performed without contrast. On the sagittal T2-weighted images, disc degeneration is seen throughout. There is no evidence of fracture. The vertebral alignment is normal. The cervical spinal cord has an unremarkable appearance without evidence of mass, edema or syrinx. The cervicomedullary junction is normal. C2-3: Annular disc bulge. There is no significant canal stenosis or neural foraminal narrowing. C3-4: Disc osteophyte complex. Severe bilateral neuroforaminal narrowing. Mild central canal stenosis with AP diameter of the thecal sac of 8 mm. C4-5: Annular disc bulge. Uncovertebral osteophytes. Moderate right neuroforaminal narrowing. C5-6: Annular disc bulge. Uncovertebral osteophytes. Severe right and moderate left neuroforaminal narrowing. C6-7: Annular disc bulge. Moderate bilateral neuroforaminal narrowing. C7-T1: There is no significant canal stenosis or neural foraminal narrowing. IMPRESSION: Multilevel degenerative disc disease as above. Central canal stenosis and severe bilateral neuroforaminal narrowing at L3-4. Reviewed, Interpreted and Dictated by Joseph Foote III, MD Transcribed by Marge Cowart Authenticated and [facility]
== END 2024-02-21 23:59 | disposition home or self-care (01) ==
LOC: RAD 06:53
PROVIDERS: PCP Internal Medicine Adolescent Medicine; Visit Provider Internal Medicine Adolescent Medicine
DX: M54.12 Radiculopathy, cervical region (principal)
CPT/HCPCS: 72141

== ENCOUNTER 2024-03-09 06:34 | Outpatient (CLI) | payer MEDICARE, BC, SELFPAY ==
--- NOTE | 2024-03-09 | CA_ITS ---
APPROVED REPORT Exam: Pharmacologic Technologist: Haley Verduzco, Ht: 5 ft 7 in Wt: 254 lbs BSA: 2.24 m2 HR: 61 bpm BP: 151/77 mmHg Rhythm: NSR Medical History Medications: Amlodipine,,,,, Omeprazole,,,,, Hydralazine,,,,, Losartan,,,,, Carvedilol,,,,, Albuterol,,,,, Montelukast,,,,, Vit D3,,,,, LoraTADINE,,,,, Nitroglycerin,,,,, RoSUVASTATIN,,,,, AZelastine,,,,, Cardiac Risk Factors: HTN, Hyperlipidemia, FHX of CAD, Smoking Stress Test Details Test: LEXISCAN HR Resting HR: 62 bpm Max Heart Rate (APMHR): 150 bpm Max HR Achieved: 92 bpm Target HR (85% APMHR): 128 bpm % of APMHR: 61 Recovery HR: 82 bpm BP Resting BP: 151/77 mmHg Max BP: 151/77 mmHg Recovery BP: 135.0/77.0 mmHg ECG Resting ECG: NSR Stress ECG: No significant ST changes Arrhythmia: None Clinical Exercise duration: 04:01 min Highest Stage Achieved: Exercise capacity: 1.0 METs Stress ECG Conclusion During lexiscan pt experinced SOA, mild chest discomfort, headache, and mild stomach discomfort. No arrhythmias noted. No significant ST changes. Conclusion: Unremarkable lexiscan stress. Myoview images are reported separately. Test Summary REST . . . . . . . Sitting REST 04:24 . . 62 . 151/ 77 . . Stage 1 01:00 . . 85 . . . . Stage 2 01:00 . . 90 . 135/ 75 . . Stage 3 01:00 . . 83 . 141/ 75 . . Stage 4 01:00 . . 78 . 136/ 78 . . Stage 4 01:01 . . 77 . 136/ 78 . Stop exercise at 04:01 RECOVERY 01:00 . . 78 . . . . RECOVERY 02:00 . . 80 . . . . RECOVERY 03:00 . . 72 . 135/ 77 . . RECOVERY 03:57 . . 74 . 144/ 74 . . Electronically signed by : Niya Warren MD 03/12/2024 12:02:47
--- NOTE | 2024-03-09 06:41 | NM_ITS ---
APPROVED REPORT Exam: Nuclear Stress Test Indication: HTN, HYPERLIPIDEMIA, FM HX, C.P., SOB, PALPITATIONS, FATIGUE Patient Location: Outpatient Stress Tech: Haley Verduzco [place] Tech:Dorina Farrell ARRT RT (R)(N)(M) Ht: 5 ft 7 in Wt: 250 lbs HR: 61 bpm BP: 151/77 mmHg BSA: 2.22 m2 TID: 1.17 BMI: 39.1 History: HTN, HYPERLIPIDEMIA, FM HX, C.P., SOB, PALPITATIONS, FATIGUE PT COULD NOT LAY ON STOMACH FOR PRONE IMAGES Procedure: Patient received 0.4 mg of intravenous Lexiscan, resting heart rate 61 bpm, resting blood pressure 151/77 mmHg, with Lexiscan maximum heart rate achieved was 92 bpm which is % of the maximum predicted heart rate and blood pressure was 135/75 mmHg. With Lexiscan, patient denied any complaint of chest pain. Cardiac Stress and Resting SPECT Images: Cardiac Stress and Resting SPECT images were obtained using technetium 99m Myoview 30.7 mCi stress and 10.22 mCi at rest. The patient could not lie on his abdomen. Therefore, prone stress imaging could not be performed. This may affect the diagnostic interpretation of the study findings. Resting and stress imaging in supine positions demonstrate no evidence of fixed or reversible perfusion defects. Gated imaging demonstrates normal global and regional LV systolic function. LVEF is calculated at 56%. Conclusion: No evidence of fixed or reversible perfusion defects. Gated imaging demonstrates normal global and regional LV systolic function. LVEF is calculated at 56%. Electronically signed by : Niya Warren MD 03/12/2024 12:03:52
[2024-03-09] MEDS: SODIUM CHLORIDE 0.9% 10ML SYR (RAD ONLY) 10 ML IV ×2 (07:10→08:45)
[2024-03-09] MEDS: REGADENOSON 0.4MG/5ML SYRINGE 0.4 MG IV (08:45)
[2024-03-09] MEDS: ISOTOPE MYOVIEW (PER STUDY) 1 DOSE IV (08:56)
== END 2024-03-09 23:59 | disposition home or self-care (01) ==
LOC: RAD 06:35
PROVIDERS: PCP Internal Medicine Adolescent Medicine; Visit Provider Internal Medicine Adolescent Medicine
DX: R06.09 Other forms of dyspnea (principal); I25.118 Atherosclerotic heart disease of native coronary artery with other forms of angina pectoris; Z87.891 Personal history of nicotine dependence
CPT/HCPCS: 78452; 93017; 93018; A9502; J2785

== ENCOUNTER 2024-06-28 09:25 | Emergency (ER) | payer MEDICARE, BC, SELFPAY ==
--- NOTE | 2024-06-28 09:38 | EXP.UTC ---
Discharge Plan Disposition Patient Disposition: Home, Self-Care Condition: Good Prescriptions Prescriptions: New amoxicillin 875 mg tablet 875 mg PO Q12H Qty: 20 0RF benzonatate 100 mg capsule 100 mg PO TIDP PRN (Reason: Cough) Qty: 30 0RF methylprednisolone 4 mg Tablets,Dose Pack 4 mg PO DIRECTED 6 Days Qty: 21 0RF Rx Instructions: Take 1 pack as directed for 6 days No Action omeprazole 20 mg tablet,delayed release (DR/EC) 20 mg PO DAILY cholecalciferol (vitamin D3) 50 mcg (2,000 unit) tablet 50 mcg PO DAILY loratadine [Allergy Relief (loratadine)] 10 mg tablet 10 mg PO DAILY amlodipine 5 mg tablet 5 mg PO DAILY carvedilol 12.5 mg tablet 12.5 mg PO BID hydralazine 25 mg tablet 25 mg PO BID losartan 100 mg tablet 100 mg PO DAILY rosuvastatin 10 mg tablet 10 mg PO DAILY montelukast 10 mg tablet 10 mg PO DAILY latanoprost 0.005 % drops 1 drp Eye-Both nitroglycerin 0.4 mg tablet, sublingual 0.4 mg sublingual azelastine 137 mcg (0.1 %) aerosol,spray 2 spray intranasal BID Qty: 30 3RF Rx Instructions: administer into each nostril albuterol sulfate 90 mcg/actuation HFA aerosol inhaler 1 inh inhalation Q6H PRN (Reason: shortness of breath or wheezing) Qty: 8.5 0RF Referrals Follow up/Referrals: Rudy Moses MD [Primary Care Provider] - See instructions Activity Restrictions/Add. Instructions Additional Instructions/Restrictions: Drink plenty of fluids. Take tylenol or ibuprofen for pain or fever. Take the medications as directed. Follow up with your regular doctor. GO TO THE ER FOR ANY WORSENING SYMPTOMS Clinical Impressions Clinical Impression: Pharyngitis, Sinusitis Instructions Patient Instructions: Sore Throat, DI for Pharyngitis/Tonsillopharyngitis -- Adult Print Language Print Language: Citizen Of The [place] Discharge ED Provider: Yaya Cali [facility] General Stated complaint: sore throat Time Seen by Provider: 06/28/24 09:38 History of Present Illness Provider Complaint: He states that for the past 4 days he has had worsening sore throat, malaise, and sinus congestion. Related Data Home Medications ?Medication ?Instructions ?Recorded ?Confirmed amlodipine 5 mg tablet 5 mg PO DAILY htn 11/16/22 04/18/24 carvedilol 12.5 mg tablet 12.5 mg PO BID htn 11/16/22 04/18/24 cholecalciferol (vitamin D3) 50 50 mcg PO DAILY Supplement 11/16/22 04/18/24 mcg (2,000 unit) tablet hydralazine 25 mg tablet 25 mg PO BID htn 11/16/22 04/18/24 loratadine 10 mg tablet (Allergy 10 mg PO DAILY allergies 11/16/22 04/18/24 Relief (loratadine)) losartan 100 mg tablet 100 mg PO DAILY htn 11/16/22 04/18/24 montelukast 10 mg tablet 10 mg PO DAILY allergies 11/16/22 04/18/24 omeprazole 20 mg tablet,delayed 20 mg PO DAILY Reflux/Acid reflux 11/16/22 04/18/24 release rosuvastatin 10 mg tablet 10 mg PO DAILY Cholesterol 11/16/22 04/18/24 latanoprost 0.005 % eye drops 1 drp Eye-Both 08/01/23 04/18/24 nitroglycerin 0.4 mg sublingual 0.4 mg sublingual 08/01/23 04/18/24 tablet Previous Rx's ?Medication ?Instructions ?Recorded albuterol sulfate 90 mcg/actuation 1 inh inhalation Q6H PRN shortness 04/13/23 aerosol inhaler of breath or wheezing #8.5 grams azelastine 137 mcg (0.1 %) nasal 2 spray intranasal BID Allergic 01/30/24 spray rhinitis #30 mL amoxicillin 875 mg tablet 875 mg PO Q12H #20 tabs 06/28/24 benzonatate 100 mg capsule 100 mg PO TIDP PRN Cough #30 caps 06/28/24 methylprednisolone 4 mg tablets in 4 mg PO DIRECTED 6 days #21 tabs 06/28/24 a dose pack Allergies Allergy/AdvReac Type Severity Reaction Status Date / Time No Known Allergies Allergy Verified 04/18/24 08:06 [facility] Disclaimer: The information contained in this section may have been updated after the patient was seen, as this information can be updated by other users. Medical History Allergic rhinitis Right chronic serous otitis media Otalgia, right ear Impacted cerumen, right ear History of prostate cancer HLD (hyperlipidemia) HTN (hypertension) Surgical History Hx of prostatectomy Previous back surgery History of cholecystectomy H/O adenoidectomy Hx of tonsillectomy Family History Other Asthma Cancer Coronary artery disease Diabetes Heart attack Hyperlipidemia Hypertension Kidney disease Stroke Social History Smoking Status: Former smoker smoking status stop date: 09/19/1972 how long ago did patient quit smokin yrs alcohol intake: never substance use type: denies use current occupational status: retired Travel in the last 8 weeks: None household members: none housing: house lives independently: Yes marital status: education level: college service: No fpc: No special oxana needs: No agree to transfusion: No do you feel safe at home: Yes victim of physical abuse: No victim of emotional abuse: No victim of sexual abuse: No would you like helpful sources: No ROS Obtained: Yes All systems reviewed & no additional complaints except as documented Constitutional Constitutional: Reports chills and Denies fever(s) Eyes Eyes: Denies eye discharge ENT Ears, Nose, Mouth, and Throat: Reports as per HPI Cardiovascular Cardiovascular: Denies chest pain Respiratory Respiratory: Denies chest congestion and Reports cough Gastrointestinal Gastrointestingal: Reports nausea; Denies abdominal pain, constipation, cramping, diarrhea or vomiting Musculoskeletal Musculoskeletal: Denies arthralgias Integumentary/Breasts Skin/Breast: Denies rash Neurologic Neurologic: Denies paresthesias Physical Exam General General appearance: alert and in no apparent distress Head Head exam: atraumatic, normocephalic and normal inspection Eye Eye exam: Present normal appearance, PERRL and EOMI ENT ENT exam: Present mucous membranes moist and normal external ear exam Expanded ENT Exam TM/Canal exam: Bilateral TM: erythema and bulging Nose exam: Absent sinus tenderness Mouth exam: Present normal external inspection; Absent drooling Teeth exam: Present normal inspection Throat exam: Present tonsillar erythema, tonsillomegaly and tonsillar exudate Neck Neck exam: Present normal inspection, full ROM and trachea midline; Absent tenderness, meningismus or lymphadenopathy Chest Chest inspection: Present normal inspection and symmetric chest wall rise; Absent tenderness Respiratory Respiratory exam: Present normal lung sounds bilaterally; Absent respiratory distress, wheezes, stridor or accessory muscle use Cardiovascular Cardiovascular exam: Present regular rate and normal rhythm; Absent systolic murmur or diastolic murmur Abdominal Exam Abdominal exam: Present soft and normal bowel sounds; Absent distention, tenderness, guarding, rebound or rigidity Extremities Exam Extremities exam: Present normal inspection and normal capillary refill; Absent calf tenderness Back Exam Back exam: Present normal inspection and full ROM; Absent tenderness, CVA tenderness (R) or CVA tenderness (L) Neurological Exam Neurological exam: Present alert, oriented X3 and CN II-XII intact Psychiatric Psychiatric exam: Present normal affect and normal mood Skin Skin exam: Present warm, dry, intact and normal color Medical Decision Making Medical Records Medical records reviewed: No I reviewed the patient's medical records. Screening: Per USPSTF and CDC recommendations, given the prevalence of disease in our region, it is our hospital?s policy to screen for HIV and viral Hepatitis for all patients aged 18 and over and those with ongoing risk factors. Matthew Inquiry Pt receiving controlled substance: No Lab Data Lab results reviewed: Yes I reviewed the patient's lab results.
[2024-06-28 09:40] VITALS: BP 145/81; PULSE 63; RESP 16; TEMP 36.7; O2SAT 96; BMI 39.1
[2024-06-28 09:48] LABS: UTC Strep Screen (Rapid) Negative (Negative)
[2024-06-28 10:14] VITALS: BP 145/81; PULSE 63; RESP 16; TEMP 36.7; O2SAT 96
== END 2024-06-28 10:15 | disposition home or self-care (01) ==
PROVIDERS: Emergency Provider Nurse Practitioner Family; PCP Internal Medicine Adolescent Medicine
DX: J32.9 Chronic sinusitis, unspecified (principal); J02.9 Acute pharyngitis, unspecified; R53.81 Other malaise; R09.81 Nasal congestion; R11.0 Nausea
CPT/HCPCS: 87880; 99212; G0381

== ENCOUNTER 2024-07-25 12:19 | Outpatient (CLI) | payer MEDICARE, BC, SELFPAY ==
--- NOTE | 2024-07-25 12:32 | US_ITS ---
FINAL REPORT CLINICAL HISTORY: HTN, bilateral claudication, bilateral rest pain, HLD. FINDINGS: Ankle-brachial indices were obtained. The right MAURI is 1.2. The left MAURI is 1.3. IMPRESSION: ABIs are within normal limits bilaterally. Reviewed, Interpreted and Dictated by Joseph Foote III, MD Transcribed by Aura Wright Authenticated and [facility]
== END 2024-07-25 23:59 | disposition home or self-care (01) ==
LOC: RT 12:19
PROVIDERS: PCP Internal Medicine Adolescent Medicine; Visit Provider Internal Medicine Adolescent Medicine
DX: I73.9 Peripheral vascular disease, unspecified (principal)
CPT/HCPCS: 93923

== ENCOUNTER 2024-08-15 08:53 | Outpatient (CLI) | payer MEDICARE, BC, SELFPAY ==
--- NOTE | 2024-08-15 08:57 | MR_ITS ---
FINAL REPORT TECHNIQUE: Multiplanar and multisequence imaging of the lumbar spine was obtained without contrast. CLINICAL HISTORY: CLAUDICATION bilateral leg pain COMPARISON: None FINDINGS: There are postoperative changes in the lower lumbar spine. There is normal alignment of the lumbar vertebral bodies. Vertebral body height is preserved. The spinal cord ends at the level of L1. There is normal signal intensity within the substance of the distal spinal cord. No acute bone marrow edema or pathologic marrow replacement. No acute paraspinal abnormality is identified. A right renal cyst is noted. L1-2: There is no focal disc herniation, central canal stenosis or neuroforaminal narrowing. L2-3: Annular disc bulge with degenerative endplate changes and facet osteoarthropathy. Severe central canal stenosis. Mild bilateral neuroforaminal narrowing asymmetric to the left. L3-4: Annular disc bulge with degenerative endplate changes and facet osteoarthropathy. Moderate central canal stenosis. Severe right and moderate left neuroforaminal narrowing. L4-5: Annular disc bulge with degenerative endplate changes and facet osteoarthropathy. Mild central canal stenosis. Severe bilateral neuroforaminal narrowing. L5-S1: Annular disc bulge with degenerative endplate changes and facet osteoarthropathy. No central canal stenosis. Severe bilateral neuroforaminal narrowing. IMPRESSION: Advanced multilevel degenerative disc disease as above. Reviewed, Interpreted and Dictated by Aishwarya Das MD Transcribed by Marge Cowart Authenticated and [facility]
== END 2024-08-15 23:59 | disposition home or self-care (01) ==
LOC: RAD 08:54
PROVIDERS: PCP Internal Medicine Adolescent Medicine; Visit Provider Internal Medicine Adolescent Medicine
DX: I73.9 Peripheral vascular disease, unspecified (principal)
CPT/HCPCS: 72148

== ENCOUNTER 2024-12-17 09:00 | Outpatient (RCR) | payer MEDICARE, BC, SELFPAY | END 2024-12-17 23:59 | disposition home or self-care (01) | LOC: PT 09:00 | PROVIDERS: PCP Internal Medicine Adolescent Medicine; Visit Provider Neurological Surgery | DX: M48.062 Spinal stenosis, lumbar region with neurogenic claudication (principal) | CPT/HCPCS: 97014; 97110; 97163; G0283 ==

== ENCOUNTER 2025-01-08 09:00 | Outpatient (RCR) | payer MEDICARE, BC, SELFPAY | END 2025-01-08 23:59 | disposition home or self-care (01) | LOC: PT 09:00 | PROVIDERS: PCP Internal Medicine Adolescent Medicine; Visit Provider Neurological Surgery | DX: M48.062 Spinal stenosis, lumbar region with neurogenic claudication (principal) | CPT/HCPCS: 97014; 97110; 97530; G0283 ==